=== PATIENT | female | born 1970 | race Caucasian/White ===

== ENCOUNTER → 2016-04-06 | Outpatient (CLI) | payer BC | LOC: BHSO 13:56 | DX: F41.1 Generalized anxiety disorder (principal) | CPT/HCPCS: 90791-AI ==

== ENCOUNTER 2018-05-07 23:10 | Emergency (ER) | payer BC ==
[~2018-05-07] VITALS: Ht 165.1 cm; Wt 65.0 kg
[2018-05-07 23:18] VITALS: TEMP 96.7
[2018-05-07 23:33] LABS: BASO # 0.2 (0.0-0.2); EOS # 0.9 (0.0-0.7); EOS % 7.7 % (0-4.0); GRAN # 6.4 (1.4-6.5); GRAN % 57.1 % (42.2-75.2); HEMATOCRIT 43.6 % (37.0-47.0); HEMOGLOBIN 14.4 g/dl (12.5-16.0); LYMPH # 2.8 (1.2-3.4); LYMPH % 25.1 % (20.0-51.0); MEAN CELL VOLUME 88 fl (80.0-100.0); MEAN CORPUSCULAR HEMOGLOBIN 29 pg (27.0-31.0); MEAN CORPUSCULAR HGB CONC 33 g/dl (33.0-37.0); MEAN PLATELET VOLUME 10.5 fl (7.4-10.4); MONO # 0.9 (0.1-0.6); MONO % 7.7 % (1.7-9.3); PLATELET COUNT 288 K/mm3 (130-400); RED BLOOD COUNT 4.94 M/mm3 (4.10-5.30); REDCELL DISTRIBUTION WIDTH-CV 12.8 % (11.5-14.5)
[2018-05-07] MEDS ORDERED: MULTI VITAMINS1 TAB PO (23:37)
[2018-05-07] MEDS ORDERED: ADVIL200 MG PO (23:38)
[2018-05-07 23:45] LABS: ALANINE AMINOTRANSFERASE 24 U/L (9-52); ALBUMIN 4.1 gm/dL (3.5-5.0); ALKALINE PHOSPHATASE 98 U/L (50-136); ANION GAP 8 mmol/L (7-16); AST,SGOT 20 U/L (15-37); BILIRUBIN,TOTAL 0.4 mg/dL (0.0-1.0); BLOOD UREA NITROGEN 16 mg/dL (7-17); CALCIUM 9.4 mg/dL (8.4-10.2); CARBON DIOXIDE 27 mmol/L (22-30); CHLORIDE 102 mmol/L (98-107); GLUCOSE 111 mg/dL (74-106); POTASSIUM 3.5 mmol/L (3.4-5.0); SODIUM 138 mmol/L (137-145); TOTAL PROTEIN 7.3 gm/dL (6.4-8.2)
[2018-05-07 23:49] LABS: PROTHROMBIN TIME 11.8 SECONDS (9.7-12.8)
[2018-05-07 23:52] LABS: PARTIAL THROMBOPLASTIN TIME 31.9 SECONDS (26.0-37.0)
[2018-05-08 00:12] LABS: TROPONIN-I < 0.012 ng/mL (0.000-0.035)
[2018-05-08 03:30] VITALS: BP 117/73; PULSE 75
== END 2018-05-08 03:35 | disposition short-term general hospital (02) ==
LOC: COL.ER 23:10
PROVIDERS: Emergency Medicine
DX: I71.00 Dissection of unspecified site of aorta (principal); F17.210 Nicotine dependence, cigarettes, uncomplicated; Z98.890 Other specified postprocedural states
CPT/HCPCS: J1170; J2270; J7050; Q9967

== ENCOUNTER 2018-08-06 12:42 | Emergency (ER) | payer BC ==
[~2018-08-06] VITALS: Ht 162.6 cm; Wt 68.2 kg
[~2018-08-06 12:42] MED LIST: ADVIL200 MG PO; MULTI VITAMINS1 TAB PO
[2018-08-06 12:50] VITALS: BP 137/90; TEMP 97
[2018-08-06] MEDS ORDERED: TOPROL XL 25MG25 MG PO (12:57)
[2018-08-06] MEDS ORDERED: TOPROL XL 50MG50 MG PO (12:58)
[2018-08-06] MEDS ORDERED: NEXIUM 40MG40 MG PO (12:58)
[2018-08-06 13:17] LABS: COLLECTION METHOD CLEAN CATCH
[2018-08-06 13:28] LABS: BASO # 0.2 (0.0-0.2); BASO % 1.7 % (0.0-2.0); EOS # 0.6 (0.0-0.7); EOS % 5.9 % (0-4.0); GRAN # 6.9 (1.4-6.5); GRAN % 66.2 % (42.2-75.2); HEMATOCRIT 45.2 % (37.0-47.0); HEMOGLOBIN 14.7 g/dl (12.5-16.0); LYMPH # 1.9 (1.2-3.4); LYMPH % 18.4 % (20.0-51.0); MEAN CELL VOLUME 88 fl (80.0-100.0); MEAN CORPUSCULAR HEMOGLOBIN 29 pg (27.0-31.0); MEAN CORPUSCULAR HGB CONC 33 g/dl (33.0-37.0); MEAN PLATELET VOLUME 10.3 fl (7.4-10.4); MONO # 0.8 (0.1-0.6); MONO % 7.3 % (1.7-9.3); PLATELET COUNT 307 K/mm3 (130-400); RED BLOOD COUNT 5.13 M/mm3 (4.10-5.30); REDCELL DISTRIBUTION WIDTH-CV 13.9 % (11.5-14.5)
[2018-08-06 13:31] LABS: PH 5 (5-8); URINE APPEARANCE Clear; URINE BACTERIA Occasional /hpf; URINE BILIRUBIN Negative (NEGATIVE); URINE BLOOD 2+ (NEGATIVE); URINE COLOR Straw; URINE GLUCOSE Negative (NEGATIVE); URINE KETONE Negative (NEGATIVE); URINE LEUKOCYTE ESTERASE Negative (NEGATIVE); URINE NITRATE Negative (NEGATIVE); URINE PROTEIN(semi-quant) Negative (NEGATIVE); URINE RBC 0-2 /hpf; URINE UROBILINOGEN Negative (NEGATIVE)
[2018-08-06 13:31] LABS: PARTIAL THROMBOPLASTIN TIME 34.5 SECONDS (26.0-37.0)
[2018-08-06 13:41] LABS: ALANINE AMINOTRANSFERASE 34 U/L (9-52); ALBUMIN 4.5 gm/dL (3.5-5.0); ALKALINE PHOSPHATASE 107 U/L (50-136); ANION GAP 12 mmol/L (7-16); AST,SGOT 29 U/L (15-37); BILIRUBIN,TOTAL 0.3 mg/dL (0.0-1.0); BLOOD UREA NITROGEN 19 mg/dL (7-17); CALCIUM 9.6 mg/dL (8.4-10.2); CARBON DIOXIDE 26 mmol/L (22-30); CHLORIDE 101 mmol/L (98-107); CREATININE, serum 0.94 (0.52-1.25); GLUCOSE 101 mg/dL (74-106); POTASSIUM 4.2 mmol/L (3.4-5.0); SODIUM 139 mmol/L (137-145); TOTAL PROTEIN 8.2 gm/dL (6.4-8.2)
[2018-08-06 13:50] LABS: TROPONIN-I < 0.012 ng/mL (0.000-0.035)
[2018-08-06 13:54] LABS: ERYTHROCYTE SEDIMENTATION RATE 11 mm/hr (0-20)
[2018-08-06] MEDS ORDERED: PHENERGAN 25 TA25 MG PO (15:16)
[2018-08-06] MEDS ORDERED: ZOFRAN ODT4 MG PO (15:16)
[2018-08-06 15:25] VITALS: PULSE 56
== END 2018-08-06 15:27 | disposition home or self-care (01) ==
LOC: COL.ER 12:42
PROVIDERS: Emergency Medicine
DX: R10.12 Left upper quadrant pain (principal); I10 Essential (primary) hypertension; F17.210 Nicotine dependence, cigarettes, uncomplicated; Z90.49 Acquired absence of other specified parts of digestive tract
CPT/HCPCS: J2550; J7030; Q9967

== ENCOUNTER → 2020-05-07 | Outpatient (CLI) | payer BC ==
[~2020-05-07] MED LIST changes: +NEXIUM 40MG40 MG PO; +PHENERGAN 25 TA25 MG PO; +TOPROL XL 25MG25 MG PO; +TOPROL XL 50MG50 MG PO; +ZOFRAN ODT4 MG PO
== END ==
LOC: COL.RAD 09:43
DX: I72.6 Aneurysm of vertebral artery (principal)
CPT/HCPCS: Q9967